=== PATIENT | male | born 1970 | race Two or more races ===

== ENCOUNTER 2024-04-28 16:17 | Inpatient (IN) | payer BC, OTHER ==
[~2024-04-28] VITALS: Ht 182.9 cm; Wt 85.0 kg
[2024-04-28 17:00] VITALS: RESP 18; O2SAT 98
[2024-04-28] MEDS ORDERED: VANCOMYCIN PER PHARMACY 0 MG IV SCH (17:00)
[2024-04-28] MEDS: SODIUM CHLORIDE 0.9% 1,000 ML IV ONE (17:33)
[2024-04-28] MEDS: PIPERACILLIN-TAZOB 3.375GM 100 ML IV ONE (17:35)
[2024-04-28 18:07] LABS: Basophils % (manual) 0 (0.0-2.0); Blast Cells 0; Eosinophils % (manual) 0 (0-7); Hematocrit 23.5 % (41.0-53.0); Hemoglobin 7.9 g/dL (13.5-17.5); Mean Corpuscular Hemoglobin 29.8 pg (28.0-32.0); Mean Corpuscular Hgb Conc. 33.7 g/dL (32.0-36.0); Mean Corpuscular Volume 88.4 fL (80.0-100.0); Metamyelocytes % 0; Myelocytes % 0; Promyelocytes % 0; Reactive Lymphocytes 0; Red Blood Cells 2.65 10^6/uL (4.5-5.90); White Blood Cell 14.7 10^3/uL (4.4-10.8)
[2024-04-28 18:08] LABS: Alanine Aminotransferase 10 U/L (7-40); Alkaline Phosphatase 59 U/L (46-116); Anion Gap 6 (5-15); Aspartate Aminotransferase < 8 U/L (13-40); BUN/Creatinine Ratio 84.3 (10.0-20.0); Bilirubin, Total < 0.2 mg/dL (0.2-1.0); Blood Urea Nitrogen 59 mg/dL (9-23); Calcium 8.3 mg/dL (8.5-10.1); Carbon Dioxide 23 mmol/L (20-30); Chloride 113 mmol/L (98-107); Glucose 110 mg/dL (74-106); Potassium 4.2 mmol/L (3.5-5.1); Sodium 142 mmol/L (136-145); Total Protein 4.3 g/dL (5.7-8.2)
[2024-04-28 18:15] LABS: Lactic Acid w/Reflex 2.4 mmol/L (0.4-2.0)
[2024-04-28 18:20] LABS: INR 1.09 (0.9-1.15); Partial Thromboplastin Time 20.5 SEC (24.5-34.5); Prothrombin Time 11.5 sec (9.3-11.8)
[2024-04-28 18:55] LABS: Anisocytosis Slight; Band Neutrophils % (manual) 2; Lymphocytes % (manual) 24 (10.0-50.0); Monocytes % (manual) 7 (0-12); Platelet Estimate Adequate
[2024-04-28 20:46] LABS: Urine Bacteria None Seen /hpf (None Seen)
[2024-04-28 20:56] LABS: Urine Blood Negative /uL (Negative); Urine Clarity Clear (Clear); Urine Color Light-Yellow (Yellow); Urine Protein, UAD Negative (Negative); Urine Urobilinogen Normal (Negative); Urine WBC 1 /hpf (0 - 3); Urine pH 5.5 (5.0-9.0)
[2024-04-28 21:10] LABS: Amphetamine Screen, Urine Pos (NEGATIVE); Barbiturate Scree,Urine Neg (NEGATIVE); Benzodiazephine Screen, Urine Neg (NEGATIVE); Cannabinoid Screen, Urine Neg (NEGATIVE); Cocaine Screen, Urine Neg (NEGATIVE); Opiate Scree,Urine Neg (NEGATIVE); Phencyclidine Screen, Urine Neg (NEGATIVE)
[2024-04-28] MEDS: VANCOMYCIN 1GM/200ML 200 ML IV ONE (21:14)
[2024-04-28] MEDS ORDERED: HYDROcodone-ACET 5/325MG TAB PO PRN (22:45)
[2024-04-28] MEDS ORDERED: ONDANSETRON HCL 4 MG/2 ML VIAL IV PRN (22:45)
[2024-04-28] MEDS: SODIUM CHLORIDE 0.9% 2,000 ML IV ONE (23:14)
[2024-04-28] MEDS: POLYETHYLENE GLYCOL 17 GM PWDR PO ONE (23:19)
[2024-04-28] MEDS: DOCUSATE SOD 100 MG CAP PO SCH (23:19)
[2024-04-29] MEDS: SODIUM CHLORIDE 0.9% 1,000 ML IV ONE ×4 (01:28→23:37)
[2024-04-29] MEDS: VANCOMYCIN 1GM/200ML 200 ML IV SCH (05:16)
[2024-04-29 07:41] LABS: Eosinophils # (auto) 0.3 10 ^3/uL (0-0.8); Eosinophils % (auto) 2.4 % (0.0-7.0); Hemoglobin 7.2 g/dL (13.5-17.5); Lymphocytes # (auto) 3.6 10 ^3/uL (0.4-5.4); Nucleated Red Blood Cells % 0.1 %
[2024-04-29 07:43] LABS: Basophils # (auto) 0 10 ^3/uL (0-0.2); Basophils % (auto) 0.3 % (0.0-2.0); Hematocrit 21.9 % (41.0-53.0); Mean Corpuscular Hemoglobin 29.2 pg (28.0-32.0); Mean Corpuscular Hgb Conc. 32.7 g/dL (32.0-36.0); Mean Corpuscular Volume 89.4 fL (80.0-100.0); Monocytes % (auto) 7.2 % (0.0-12.0); Neutrophils % (auto) 64.1 % (37.0-80.0); Red Blood Cells 2.45 10^6/uL (4.5-5.90); Red Cell Distribution Width 14.2 % (11.8-14.3)
[2024-04-29 07:44] LABS: Chloride 113 mmol/L (98-107); Potassium 4.2 mmol/L (3.5-5.1); Sodium 138 mmol/L (136-145)
[2024-04-29 07:45] LABS: COVID19 ANTIGEN SOFIA FIA NEGATIVE (NEGATIVE); Rapid Influenza A Negative (Negative); Rapid Influenza B Negative (Negative)
[2024-04-29 07:45] LABS: Anion Gap 5 (5-15); Carbon Dioxide 20 mmol/L (20-30)
[2024-04-29 07:50] LABS: BUN/Creatinine Ratio 26.5 (10.0-20.0); Blood Urea Nitrogen 18 mg/dL (9-23); Glucose 100 mg/dL (74-106)
[2024-04-29 07:55] LABS: Lactic Acid w/Reflex 2.2 mmol/L (0.4-2.0)
[2024-04-29] MEDS ORDERED: LACTULOSE 20Gm/30ML SOLN PO PRN (08:45)
[2024-04-29] MEDS: PANTOPRAZOLE 40 MG/10 ML VIAL INJ IV SCH (10:07)
[2024-04-29] MEDS: DOCUSATE SOD 100 MG CAP PO SCH (10:07)
[2024-04-29] MEDS: POLYETHYLENE GLYCOL 17 GM PWDR PO ONE (10:45)
[2024-04-29 12:00] LABS: Lactic Acid w/Reflex 3.1 mmol/L (0.4-2.0)
[2024-04-29 12:02] LABS: % Iron Saturation 29.3 % (20-55)
[2024-04-29 12:05] LABS: Folate (Folic Acid) 15.45 ng/mL (>5.38)
[2024-04-29] MEDS ORDERED: MIDAZOLAM HCL 2MG/2ML 2ml VIAL (1mg/ml) ONE (14:40)
[2024-04-29 14:50] VITALS: PULSE 74; RESP 16; O2SAT 100
[2024-04-29] MEDS ORDERED: PROPOFOL 10 MG/ML 20 ML IV ONE (14:54)
[2024-04-29] MEDS: ONDANSETRON HCL 4 MG/2 ML VIAL IV ONE (15:19)
[2024-04-29 16:07] VITALS: BP 105/65; PULSE 70; RESP 18; TEMP 97.9; O2SAT 97
[2024-04-29] MEDS: SUCRALFATE 1 GM/10 ML ORAL SUSP GT SCH (16:35)
[2024-04-29 17:00] VITALS: BP 105/65; PULSE 71; RESP 18; TEMP 97.9; O2SAT 97
[2024-04-29 20:00] VITALS: PULSE 90; RESP 18
[2024-04-29 21:00] VITALS: BP 129/70; PULSE 87; RESP 18; TEMP 99.1; O2SAT 96
[2024-04-29] MEDS: SENNA 8.6 MG TAB PO SCH (21:27)
[2024-04-29] MEDS: CYANOCOBALAMIN (B-12) 1000 MCG/1 ML VIAL IM ONE (23:37)
[2024-04-30] VITALS (7 sets, daily range): BP systolic 92–120; BP diastolic 45–61; PULSE 67–79; RESP 16–21; TEMP 98.4–98.9; O2SAT 93–98
[2024-04-30] MEDS: SUCRALFATE 1 GM/10 ML ORAL SUSP PO SCH (12:07)
[2024-04-30] MEDS: CYANOCOBALAMIN (B-12) 1000 MCG/1 ML VIAL IM ONE (15:01)
[2024-04-30] MEDS ORDERED: SENN-105 PO (16:49)
[2024-04-30] MEDS ORDERED: PANT40T PO (16:49)
[2024-04-30] MEDS ORDERED: SUCR1SUS26 PO (16:49)
[2024-04-30] MEDS ORDERED: DOCU-265 PO (16:49)
[2024-04-30] MEDS ORDERED: CYAN1LOZ PO ×2 (16:50→16:51)
== END 2024-04-30 17:45 | disposition home or self-care (01) | DRG 392 ==
LOC: EDBD 16:17 → ER 16:17 → TELE 22:46 → TELE-WESTW 04-29 15:46
PROVIDERS: ADMIT Internal Medicine; ATTEND Internal Medicine
PROC: 0DB68ZX Excision of Stomach, Via Natural or Artificial Opening Endoscopic, Diagnostic (ICD-10-PCS; 2024-04-29)
PROC: 0DB98ZX Excision of Duodenum, Via Natural or Artificial Opening Endoscopic, Diagnostic (ICD-10-PCS; principal; 2024-04-29 14:32)
DX: K29.80 Duodenitis without bleeding (principal); K22.10 Ulcer of esophagus without bleeding; K59.00 Constipation, unspecified; E86.0 Dehydration; K44.9 Diaphragmatic hernia without obstruction or gangrene; K25.9 Gastric ulcer, unspecified as acute or chronic, without hemorrhage or perforation; M10.9 Gout, unspecified; Z20.822 Contact with and (suspected) exposure to COVID-19; D64.9 Anemia, unspecified; K29.70 Gastritis, unspecified, without bleeding; Z87.891 Personal history of nicotine dependence
CPT/HCPCS: 36415; 71045; 74176; 80048; 80053; 80202; 80307; 81001; 82550; 82607; 82728; 82746; 83540; 83550; 83605; 83880; 85007; 85025; 85027; 85610; 85730; 87040; 87426; 87804; 93005; G0378; J2250; J2470; J2543; J2704

== ENCOUNTER 2024-05-01 21:11 | Emergency (ER) | payer BC ==
[~2024-05-01] VITALS: Ht 182.9 cm; Wt 85.1 kg
[~2024-05-01 21:11] MED LIST: CYAN1LOZ PO; DOCU-265 PO; PANT40T PO; SENN-105 PO; SUCR1SUS26 PO
[2024-05-01 22:23] LABS: Basophils # (auto) 0 10 ^3/uL (0-0.2); Basophils % (auto) 0.3 % (0.0-2.0); Eosinophils # (auto) 0.3 10 ^3/uL (0-0.8); Eosinophils % (auto) 3.1 % (0.0-7.0); Hematocrit 17.2 % (41.0-53.0); Lymphocytes # (auto) 3.2 10 ^3/uL (0.4-5.4); Lymphocytes % (auto) 30.7 % (10.0-50.0); Mean Corpuscular Hemoglobin 30.5 pg (28.0-32.0); Mean Corpuscular Hgb Conc. 34.2 g/dL (32.0-36.0); Mean Corpuscular Volume 89.2 fL (80.0-100.0); Monocytes # (auto) 0.8 10 ^3/uL (0-1.3); Monocytes % (auto) 7.5 % (0.0-12.0); Neutrophils % (auto) 58.4 % (37.0-80.0); Nucleated Red Blood Cells % 0.1 %; Red Blood Cells 1.92 10^6/uL (4.5-5.90); Red Cell Distribution Width 14.2 % (11.8-14.3); White Blood Cell 10.3 10^3/uL (4.4-10.8)
[2024-05-01 22:30] VITALS: PULSE 76; RESP 12; O2SAT 99
[2024-05-01 22:30] LABS: Hemoglobin 5.9 g/dL (13.5-17.5)
[2024-05-01 22:42] LABS: Alanine Aminotransferase 12 U/L (7-40); Alkaline Phosphatase 64 U/L (46-116); Anion Gap 5 (5-15); Aspartate Aminotransferase 13 U/L (13-40); BUN/Creatinine Ratio 15.8 (10.0-20.0); Blood Urea Nitrogen 12 mg/dL (9-23); Calcium 8.8 mg/dL (8.7-10.4); Carbon Dioxide 27 mmol/L (20-30); Chloride 106 mmol/L (98-107); Glucose 119 mg/dL (74-106); Potassium 3.5 mmol/L (3.5-5.1); Sodium 138 mmol/L (136-145)
[2024-05-01 22:43] LABS: Albumin 3.5 g/dL (3.2-4.8); Bilirubin, Total 0.2 mg/dL (0.2-1.0); Total Protein 5.2 g/dL (5.7-8.2)
[2024-05-01] MEDS: SODIUM CHLORIDE 0.9% 1,000 ML IV ONE (23:33)
[2024-05-01] MEDS: PANTOPRAZOLE 40 MG/10 ML VIAL INJ IV ONE (23:33)
[2024-05-01 23:53] VITALS: BP 113/58; PULSE 73; RESP 16; TEMP 98.4
[2024-05-02 00:22] VITALS: BP 111/61; PULSE 79; RESP 11; TEMP 98.3
[2024-05-02 01:07] VITALS: BP 106/59; PULSE 69; RESP 12; TEMP 98.3
[2024-05-02 02:21] VITALS: BP 101/48; PULSE 65; RESP 17; TEMP 98.6
[2024-05-02 02:33] VITALS: BP 104/65; PULSE 71; RESP 13; TEMP 98.6; O2SAT 96
== END 2024-05-02 02:45 | disposition short-term general hospital (02) ==
LOC: ER 21:11
DX: E86.0 Dehydration (principal); F15.90 Other stimulant use, unspecified, uncomplicated; Z79.899 Other long term (current) drug therapy; Z98.890 Other specified postprocedural states
CPT/HCPCS: 36415; 36430; 80053; 84484; 85025; 86850; 86900; 86901; 86920; 93005; 96361; 96374; 99285; J2470; J7030; P9016